=== PATIENT | female | born 1980 | race Caucasian/White ===

== ENCOUNTER → 2021-12-26 09:36 | Outpatient (CLI) | payer OTHER, SELFPAY ==
--- NOTE | ~2021-12-26 | MR_ITS ---
EXAMINATION: MR cervical spine wo con DATE: 12/26/2021 10:08 INDICATION: Neck pain with radiculopathy. TECHNIQUE: Magnetic resonance imaging (MRI) of the cervical spine was performed without intravenous c ontrast. Sequences included sagittal T2-weighted FSE, sagittal T2-weighted FS FSE, sagittal T1-weight ed FSE, axial MERGE, and axial T2-weighted FSE. COMPARISON: None FINDINGS: There is mild kyphosis of cervical spine. There is 3 degrees levocurvature of cervical spin e. Vertebral body heights are normal. There is mildly decreased disc height at C2-C3, C4-C5, and C5-C 6 and moderately decreased disc height at C6-C7. There is syringohydromyelia at C7 and T1 with maximu m diameter of 1 mm. The following disc levels are specifically discussed: C2-C3: There is a central protrusion. There is mild bilateral uncovertebral joint osteoarthritis. The re is mild bilateral facet joint osteoarthritis. There is no neural foraminal stenosis. There is no c entral canal stenosis. C3-C4: There is a central protrusion. There is mild bilateral uncovertebral joint osteoarthritis. The re is mild bilateral facet joint osteoarthritis. There is mild bilateral neural foraminal stenosis. T here is no central canal stenosis. C4-C5: There is a central protrusion. There is no uncovertebral joint osteoarthritis. There is severe right and moderate left facet joint osteoarthritis. There is mild right neural foraminal stenosis. T here is mild central canal stenosis. C5-C6: The disc is bulging. There is mild bilateral uncovertebral joint osteoarthritis. There is mild bilateral facet joint osteoarthritis. There is mild left neural foraminal stenosis. There is mild ce ntral canal stenosis. C6-C7: The disc is bulging. There is mild bilateral uncovertebral joint osteoarthritis. There is mild bilateral facet joint osteoarthritis. There is mild left neural foraminal stenosis. There is mild ce ntral canal stenosis. C7-T1: The disc does not extend beyond the endplate margin. There is no uncovertebral joint osteoarth ritis. There is severe right and mild left facet joint osteoarthritis. There is mild bilateral neural foraminal stenosis. There is no central canal stenosis. IMPRESSION: 1. Moderate cervical spondylosis. 2. 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 Reviewed, dictated and finalized at location [facility].
== END ==
PROVIDERS: PCP Internal Medicine; Visit Provider Physician Assistant Medical
DX: M47.22 Other spondylosis with radiculopathy, cervical region (principal)
CPT/HCPCS: 72141

== ENCOUNTER 2024-01-30 12:37 | Outpatient (CLI) | payer OTHER, SELFPAY ==
--- NOTE | ~2024-01-30 | MR_ITS ---
MRI of the cervical spine Clinical History: Cervicalgia Technique: Axial T2-weighted and gradient images, and sagittal T1-weighted, T2-weighted, and STIR jayy ges were acquired. COMPARISON: 12/26/2021 Findings: There is straightening of the normal cervical lordosis. No fracture or subluxation seen. No suspicious or abnormal bone marrow signal reality seen. At C2-C3, there is mild disc ossify complex. No canal stenosis, cord compression, or neural foraminal narrowing evident. At C3-C4, there is minimal disc bulge. There is mild canal stenosis without miriam cord compression. T here is probable mild bilateral neural foraminal narrowing, right worse than left. At C4-C5, there is minimal disc osteophyte complex, with mild canal stenosis but no miriam cord compre ssion. There is right neural foraminal narrowing and moderate facet arthropathy. Left neural foramen preserved. At C5-C6, there is disc osteophyte complex with mild canal stenosis and minimal flattening the ventra l cord. Neural foramina are probably preserved. At C6-C7, there is disc osteophyte complex, with mild canal stenosis and minimal flattening the ventr al cord. Neural foramina are preserved. No abnormal signal seen in the spinal cord. Paravertebral soft tissues are unremarkable. Impression: Degenerative spondylosis, as detailed above. Reviewed, dictated and finalized at [facility]. Impression: Degenerative spondylosis, as detailed above.
== END 2024-01-30 12:38 ==
PROVIDERS: PCP Physician Assistant Medical; Visit Provider Physician Assistant Medical
DX: M47.892 Other spondylosis, cervical region (principal)
CPT/HCPCS: 72141